=== PATIENT | male | born 1990 | race Caucasian/White ===

== ENCOUNTER 2017-02-25 08:28 | Emergency (ER) | payer OTHER ==
[2017-02-25] MEDS ORDERED: IPRATROPIUM BROMIDE NEBS 0.5 MG/2.5 ML VIAL NEB ONE ×2 (08:46→10:00)
--- NOTE | 2017-02-25 09:00 | RAD ---
EXAM DESCRIPTION: XR CHEST 1 VIEW CLINICAL HISTORY: arrested anxiety COMPARISON: None TECHNIQUE: Single view chest FINDINGS: Heart size is normal. Mild hyperinflation. Apical lordotic positioning.. No edema, infiltrates or effusions No acute bony abnormality IMPRESSION: No acute cardiopulmonary process. Electronically signed by: Hema Barba MD 02/25/2017 9:00 AM CDT
[2017-02-25] MEDS: SODIUM CHLORIDE 0.9% 1000ML 1,000 ML IVS ONE ×2 (09:24→09:27)
[2017-02-25 09:59] VITALS: TEMP 98.2
[2017-02-25] MEDS ORDERED: SODIUM CHLORIDE 0.9% NEB 3 ML VIAL ONE (10:00)
[2017-02-25] MEDS ORDERED: PANTOPRAZOLE SODIUM IV 40 MG VIAL IV ONE (10:03)
[2017-02-25] MEDS ORDERED: ONDANSETRON INJ 4 MG/2 ML VIAL IV ONE (10:03)
--- NOTE | 2017-02-25 11:14 | ED.PDOC ---
History of Present Illness - General Chief Complaint: Behavioral / Psych Stated Complaint: sob, nausea Time Seen by Provider: 02/25/17 08:31 Source: patient, police Exam Limitations: no limitations - History of Present Illness Initial Comments: The patient is a 26-year-old male brought in by police after being arrested. He was apparently found withmethamphetamines. Several people here at the emergency room note him and it is apparently well known that he has been using methamphetamines. He has apparently lost a significant amount of weight over the last few months. The police arrested him and as soon as he was requested he apparently started getting short of breath and coughing. Upon my arrival the patient is sobbing and cryingand fighting to catch his breath. He is obviously dysphoric and having a anxiety attack. He is obviously still intoxicated as well. He is hyperactive and twitchy. He is moving air well without difficulty. His oropharynx is clear. His voice is clear. Chest x-ray is grossly within normal limits. The patient is tachycardic. He is obviously been awake a while. He originally told the police that he wanted to hurt himself. After he calms down as his case. He does obviously have some background depression that needs longer-term treatment. It is difficult to say whether or not the depression was present before the drug use. The patient did not take any Tylenol today. He denies abusing any [id number] medications. He is not having chest pain. He did not pass out. He does not have significant past medical history otherwise. He is alert and oriented and quite upset. Timing/Duration: 1 hour Severity: moderate Improving Factors: nothing Worsening Factors: nothing Associated Symptoms: cough Allergies/Adverse Reactions: Allergies NO KNOWN ALLERGY Allergy (Unverified 02/09/13 23:42) Review of Systems - Review of Systems Constitutional: States: malaise EENTM: States: no symptoms reported Respiratory: States: cough, short of breath Cardiology: States: palpitations Gastrointestinal/Abdominal: States: no symptoms reported Genitourinary: States: no symptoms reported Musculoskeletal: States: no symptoms reported Skin: States: no symptoms reported Neurological: States: anxiety, depressed Endocrine: States: no symptoms reported All other Systems: No Change from Baseline Past Medical History (General) - Patient Medical History Hx Asthma: No Hx Hypertension: No Hx Diabetes: No Surgical History: no surgical history - Vaccination History Hx Influenza Vaccination: No - Social History Hx Tobacco Use: Yes Hx Substance Use: Yes - Activities of Daily Living Hospice Agency (if applicable):: None - Female History Patient is a Female of Child Bearing Age (10 -59 yrs old): No Patient : No Family Medical History - Family History Mother Family History: Unknown Physical Exam - Physical Exam General Appearance: Alert, Anxious, Other - currently handcuffed to the bed Eye Exam: bilateral normal Ears, Nose, Throat: hearing grossly normal, normal ENT inspection, normal pharynx Neck: non-tender, full range of motion, supple Respiratory: chest non-tender, lungs clear, normal breath sounds, no respiratory distress, no accessory muscle use Cardiovascular/Chest: normal peripheral pulses, no edema, tachycardia - tachycardic but regular rhythm on telemetry Peripheral Pulses: radial,right: 2+, radial,left: 2+, dorsalis pedis,right: 2+, dorsalis pedis,left: 2+ Gastrointestinal/Abdominal: non tender, soft Rectal Exam: deferred Back Exam: normal inspection, no CVA tenderness, no vertebral tenderness Extremity: normal range of motion, non-tender, normal inspection, no pedal edema , no calf tenderness, normal capillary refill 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 The patient is obviously still intoxicated but appears to be medically stable. He does have some dehydration and some very mild rhabdomyolysis. He did receive a liter of IV fluids. He is calming down after being watched for several hours. He does have substance abuse issues. There is likely anxiety and depression issues behind this. He should seek counseling once it is available. ER warnings were given. he will be released to police custody. - Results/Orders Results/Orders: Laboratory Results - last 24 hr 02/25/17 02/25/17 09:00 09:00 WBC 11.7 H RBC 5.00 Hgb 14.5 Hct 42.8 MCV 85.6 MCH 29.1 MCHC 33.9 RDW 13.1 Plt Count 275 MPV 7.4 Absolute Neuts (auto) 9.40 H Absolute Lymphs (auto) 1.40 Absolute Monos (auto) 0.60 Absolute Eos (auto) 0.10 Absolute Basos (auto) 0.10 Neutrophils % 80.1 H Lymphocytes % 12.3 L Monocytes % 5.4 Eosinophils % 1.2 Basophils % 1.0 Sodium 142 Potassium 4.2 Chloride 102 Carbon Dioxide 26 Anion Gap 18.2 H BUN 19 H Creatinine 1.42 H BUN/Creatinine Ratio 13.4 Random Glucose 94 Serum Osmolality 285.1 Calcium 10.3 H Magnesium 2.6 H Total Bilirubin 0.9 AST 35 ALT 26 Alkaline Phosphatase 61 Creatine Kinase 974 H* CK-MB (CK-2) 7.1 H* CK-MB (CK-2) % 0.73 Troponin I < 0.02 B-Natriuretic Peptide < 5.0 Serum Total Protein 8.3 H Albumin 5.0 Globulin 3.3 Albumin/Globulin Ratio 1.5 chest x-ray shows no acute pathology. EKG shows sinus tachycardia. Normal R-wave progression. No obvious acute ST segment changes concerning for ischemia. Departure - Departure Clinical Impression: Panic attack, Substance abuse, Dehydration Rhabdomyolysis Qualifiers: Rhabdomyolysis type: non-traumatic Qualified Code(s): M62.82 - Rhabdomyolysis Disposition: Discharge to Home or Self Care Condition: Fair Departure Forms: ED Discharge - Pt. Copy, Patient Portal Self Enrollment Instructions: Chemical Dependency (Narcotic) (Alternative Therapy), DI for Rhabdomyolysis, DI for Dehydration -- Adult, DI for Panic Disorder Diet: regular diet Activity: increase activity as tolerated Additional Instructions: the patient is a 26-year-old male presenting to the emergency room in police custody.. The patient is obviously still intoxicated but appears to be medically stable. He does have some dehydration and some very mild rhabdomyolysis. He did receive a liter of IV fluids. he did have a panic attack. He is calming down after being watched for several hours. He does have substance abuse issues. There is likely anxiety and depression issues behind this. He should seek counseling once it is available. ER warnings were given. he will be released to police custody. Comments: the patient is a 26-year-old male presenting to the emergency room in police custody.. The patient is obviously still intoxicated but appears to be medically stable. He does have some dehydration and some very mild rhabdomyolysis. He did receive a liter of IV fluids. He is calming down after being watched for several hours. He does have substance abuse issues. There is likely anxiety and depression issues behind this. He should seek counseling once it is available. ER warnings were given. he will be released to police custody.
[2017-02-25 11:38] VITALS: BP 109/80; O2SAT 100
== END 2017-02-25 11:38 | disposition home or self-care (01) ==
LOC: ER 08:28
DX: F41.0 Panic disorder [episodic paroxysmal anxiety] (principal); E86.0 Dehydration; F19.10 Other psychoactive substance abuse, uncomplicated; M62.82 Rhabdomyolysis; Z87.891 Personal history of nicotine dependence
CPT/HCPCS: 36415; 71010; 80053; 80307; 81001; 82550; 82553; 83735; 83880; 84484; 85025; 93005; 94640; A4216; J2405; J7030; J7644

== ENCOUNTER 2019-12-24 | Emergency (ER) | payer OTHER ==
--- NOTE | 2019-12-24 04:40 | ED.PDOC ---
History of Present Illness - General Chief Complaint: Laceration Stated Complaint: head laceration Time Seen by Provider: 12/24/19 04:37 Source: patient Exam Limitations: no limitations - History of Present Illness Initial Comments: The patient is a 29-year-old male presented emergency room after having head butted the cage in the certified flex endoscope reprocessor car. The patient has a superficial linear laceration just at the hairline on his forehead. It is not deep but it is bled some. No gape to the wound. No other injuries. The patient is obviously currently high. Timing/Duration: momentarily Severity: mild Improving Factors: nothing Worsening Factors: nothing Associated Symptoms: denies symptoms Allergies/Adverse Reactions: Allergies NO KNOWN ALLERGY Allergy (Unverified 02/09/13 23:42) Review of Systems - Review of Systems Constitutional: States: no symptoms reported EENTM: States: no symptoms reported Respiratory: States: no symptoms reported Cardiology: States: no symptoms reported Gastrointestinal/Abdominal: States: no symptoms reported Genitourinary: States: no symptoms reported Musculoskeletal: States: no symptoms reported Skin: States: see HPI Neurological: States: no symptoms reported Endocrine: States: no symptoms reported All other Systems: No Change from Baseline Past Medical History (General) - Patient Medical History Hx Asthma: No Hx Hypertension: No Hx Diabetes: No - Vaccination History Hx Influenza Vaccination: No - Social History Hx Tobacco Use: Yes Hx Substance Use: Yes - Female History Patient : No Family Medical History - Family History Mother Family History: Unknown Physical Exam - Physical Exam General Appearance: Alert, Anxious Eye Exam: bilateral normal Ears, Nose, Throat: hearing grossly normal Neck: full range of motion Respiratory: no respiratory distress, no accessory muscle use Cardiovascular/Chest: normal peripheral pulses, no edema Peripheral Pulses: radial,right: 2+, radial,left: 2+ Rectal Exam: deferred Extremity: normal range of motion - As best can be defined while the patient is in handcuffs 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 Alert and oriented. Skin Exam: normal color - Laceration superficial about an inch and a half in length at the hairline Progress - Progress Progress: 12/24/19 04:40 The patient is a 29-year-old male in custody presenting secondary to a laceration just to the hairline of the forehead. Laceration is superficial and is hemostatic at this point. It will lead to hairline scar. Wound is cleaned with hydrogen peroxide. ER warnings are given for any worsening. The patient will be released to custody. dave torres [id number] Departure - Departure Clinical Impression: Accidental laceration Intoxication by drug Qualifiers: Complication of substance-induced condition: with unspecified complication Qualified Code(s): F19.929 - Other psychoactive substance use, unspecified with intoxication, unspecified Disposition: Nursing Home Condition: Fair Departure Forms: ED Discharge - Pt. Copy, Patient Portal Self Enrollment Diet: regular diet Activity: increase activity as tolerated Additional Instructions: The patient is a 29-year-old male in custody presenting secondary to a laceration just to the hairline of the forehead. Laceration is superficial and is hemostatic at this point. It will lead to hairline scar. Wound is cleaned with hydrogen peroxide. ER warnings are given for any worsening. The patient will be released to custody.
== END 2019-12-24 04:55 ==

== ENCOUNTER 2020-02-21 12:21 | Emergency (ER) | payer OTHER ==
--- NOTE | 2020-02-21 12:28 | ED.PDOC ---
History of Present Illness - General Chief Complaint: Behavioral / Psych Stated Complaint: Psychosis Time Seen by Provider: 02/21/20 12:25 Source: patient, police Exam Limitations: other - Mental health - History of Present Illness Initial Comments: Pt transported here from [facility], where he has been for at least the past 3 months. Reportedly pt has increased agitation and increased auditory hallucinations. Pt denies any other complaints. They were going to transport him to [facility] facility but needed medical clearance. Pt says he is not currently on psych meds, but has been on tx for PTSD, anxiety and schizophrenia in the past. Pt denies SI/HI. Timing/Duration: unsure Severity: mild, moderate Improving Factors: nothing Worsening Factors: nothing Presenting Symptoms: other - Increased hallucinations, agitation Allergies/Adverse Reactions: Allergies NO KNOWN ALLERGY Allergy (Unverified 02/09/13 23:42) Review of Systems - Review of Systems Constitutional: States: no symptoms reported EENTM: States: no symptoms reported Respiratory: States: no symptoms reported Cardiology: States: no symptoms reported Gastrointestinal/Abdominal: States: no symptoms reported Genitourinary: States: no symptoms reported Musculoskeletal: States: no symptoms reported Neurological: States: anxiety, other Endocrine: States: no symptoms reported Past Medical History (General) - Patient Medical History Hx Seizures: No Hx Stroke: No Hx Dementia: No Hx Asthma: No Hx of COPD: No Hx Cardiac Disorders: No Hx Congestive Heart Failure: No Hx Pacemaker: No Hx Hypertension: No Hx Thyroid Disease: No Hx Diabetes: No Hx Gastroesophageal Reflux: No Hx Renal Disease: No Hx Cancer: No Hx of HIV: No Hx Hepatitis C: No Hx MRSA: No - Vaccination History Hx Tetanus, Diphtheria Vaccination: No Hx Influenza Vaccination: No Hx Pneumococcal Vaccination: No - Social History Hx Tobacco Use: Yes Hx Alcohol Use: Yes Hx Substance Use: Yes Hx Substance Use Treatment: Yes Hx Depression: Yes - Female History Patient : No Physical Exam - Physical Exam General Appearance: active, no apparent distress HEENT: head inspection normal, fontanelle closed/normal, PERRL, nose normal Neck: non-tender, full range of motion, supple, normal inspection Respiratory: chest non-tender, lungs clear, normal breath sounds, no respiratory distress, no accessory muscle use Cardiovascular/Chest: normal peripheral pulses, regular rate, rhythm, no edema, no gallop, no JVD, no murmur Gastrointestinal/Abdominal: normal bowel sounds, non tender, soft, no organomegaly, no pulsatile mass Neurologic: alert, oriented x 3, other - slightly agitated Skin Exam: normal color Progress - Progress Progress: 02/21/20 14:[address] Lancaster present, pt clearly very emotional, tearful. He admitted to suicidal ideation but without a specific plan. Pt willing to be voluntary admitted to psych facility. Pt says he feels like he needs to be admitted to psych facility. 02/21/20 14:32 Warrant completed [facility]. Per , pt to be d/c into police custody. They will transport back to [facility] and then, from there, transfer to [facility]. Pt has nonacute vitals. Workup only demonstrates elevated CK without renal dysfunction and slight dehydration. Pt appears safe and appropriate for d/c to police custody. Pt has mild suicidal ideation, but insists he has no specific plan. Pt not overtly homicidal but most definitely appears agitated. Pt says he has been admitted to psych facilities multiple times, at times via police custody, and at times via EMS. 02/21/20 14:43 I notied deputy and patient of all lab results, including CK. Neither had questions or concerns about being d/c home. 02/21/20 14:44 Reportedly 2 separate physicians were to complete emergency warrant, but paperwork only suggests need for one. I d/w Dr. Lancaster. Dr. Lancaster said for now d/c with one emergency warrant rod, and if another is eventually needed, he will be happy to fill it out. Departure - Departure Clinical Impression: Psychosis, History of schizophrenia, PTSD (post-traumatic stress disorder), Rhabdomyolysis, Suicidal ideation Time of Disposition: 14:19 Disposition: Long Term Condition: Fair Departure Forms: ED Discharge - Pt. Copy, Patient Portal Self Enrollment Instructions: DI for Psychosis Diet: resume usual diet
[2020-02-21 14:37] VITALS: BP 98/80; TEMP 9; O2SAT 99
== END 2020-02-21 14:45 ==
LOC: ER 12:21
DX: F29 Unspecified psychosis not due to a substance or known physiological condition (principal); R45.851 Suicidal ideations